=== PATIENT | male | born 1985 | race Caucasian/White ===

== ENCOUNTER 2020-10-03 00:25 | Emergency (ER) | payer OTHER ==
[~2020-10-03] VITALS: Ht 182.9 cm; Wt 108.9 kg
[2020-10-03] MEDS ORDERED: ONDANSETRON HCL INJ 2MG/ML 2ML 2 MG/ML VIAL IV STA (00:37)
[2020-10-03] MEDS ORDERED: KETOROLAC TROMETHAMINE 30 MG/ML VIAL IV STA (00:37)
[2020-10-03] MEDS ORDERED: FENTANYL CITRATE/PF 100MCG/2 ML INJ IV ONE (00:45)
[2020-10-03 01:09] LABS: BASOPHILS # (AUTO) 0.1 (0.0-0.1); BASOPHILS % 0.9 % (0.0-1.0); EOSINOPHILS # (AUTO) 0.5 (0.0-0.4); EOSINOPHILS % 3.5 % (0.0-6.0); HEMATOCRIT 48.5 % (38.2-49.6); HEMOGLOBIN 15.7 g/dL (14.0-18.0); LYMPHOCYTES # (AUTO) 3.1 (1.0-3.2); LYMPHOCYTES % 22.6 % (18.0-39.1); MEAN CORPUSCULAR HEMOGLOBIN 28.6 pg (28-32); MEAN CORPUSCULAR HGB CONC 32.4 g/dL (31-35); MEAN CORPUSCULAR VOLUME 88.3 fL (81-99); MONOCYTES # (AUTO) 0.7 (0.2-0.8); MONOCYTES % 4.9 % (4.4-11.3); NEUTROPHILS # (AUTO) 9.2 (2.1-6.9); NEUTROPHILS % 67.5 % (38.7-80.0); PLATELET COUNT 343 x10e3/uL (140-360); RED BLOOD COUNT 5.49 x10e6/uL (4.3-5.7); RED CELL DISTRIBUTION WIDTH 12.2 % (11.7-14.4)
[2020-10-03 01:25] LABS: CLARITY,URINE CLOUDY (CLEAR); COLOR,URINE YELLOW (YELLOW); KETONES,URINE TRACE (NEGATIVE); LEUKOCYTE ESTERASE ,URINE NEGATIVE (NEGATIVE); NITRITE,URINE NEGATIVE (NEGATIVE); PROTEIN,URINE DIPSTICK 2+ (NEGATIVE); URINE UROBILINOGEN 0.2 mg/dL (0.2 - 1)
[2020-10-03 01:33] LABS: BACTERIA,URINE MANY /HPF; CALCIUM OXALATE CRYSTALS,UR FEW (FEW); EPITHELIAL CELLS,URINE FEW /LPF; MUCUS,URINE MANY (RARE); RBC,URINE >50 /HPF (0-5)
[2020-10-03 01:39] LABS: ALBUMIN 3.6 g/dL (3.5-5.0); ALBUMIN/GLOBULIN RATIO 0.9 (0.8-2.0); ANION GAP 14.8 mmol/L (8-16); CALCIUM 9.1 mg/dL (8.4-10.2); CREATININE, SERUM 1.12 mg/dL (0.72-1.25); POTASSIUM 3.8 mmol/L (3.5-5.1)
[2020-10-03] MEDS ORDERED: CEFDINIR300 MG PO (02:11)
[2020-10-03] MEDS ORDERED: FLOMAX0.4 MG PO (02:12)
[2020-10-03] MEDS ORDERED: ONDANSETRON ODT4 MG PO (02:12)
[2020-10-03] MEDS ORDERED: ACETAMINOPHEN/CODEINE 300MG - 30MG TAB PO ONE (02:15)
== END 2020-10-03 02:49 | disposition home or self-care (01) ==
LOC: ER 00:37
DX: M54.5 Low back pain (principal); N13.2 Hydronephrosis with renal and ureteral calculous obstruction
CPT/HCPCS: 36415; 74176; 80053; 81001; 85025; 99283; J1885; J2405

== ENCOUNTER 2024-04-02 04:58 | Inpatient (IN) | payer BC, OTHER ==
[2024-04-02] VITALS (9 sets, daily range): BP systolic 136–146; BP diastolic 72–94; PULSE 59–76; RESP 17–20; TEMP 97.4–98.3; O2SAT 95–99
[~2024-04-02] VITALS: Ht 180.3 cm; Wt 133.8 kg
[~2024-04-02 04:58] MED LIST: CEFDINIR300 MG PO; FLOMAX0.4 MG PO; ONDANSETRON ODT4 MG PO
[2024-04-02] MEDS: ONDANSETRON HCL INJ 2MG/ML 2ML 2 MG/ML VIAL IV STA (05:12)
[2024-04-02] MEDS: SODIUM CHLORIDE 0.9% 1000ML 1,000 ML IV STA (05:12)
[2024-04-02] MEDS: KETOROLAC TROMETHAMINE 30 MG/ML VIAL IV STA (05:13)
[2024-04-02 05:20] LABS: BASOPHILS # (AUTO) 0.1 (0.0-0.1); BASOPHILS % 0.9 % (0.0-1.0); EOSINOPHILS # (AUTO) 0.4 (0.0-0.4); EOSINOPHILS % 2.8 % (0.0-6.0); HEMOGLOBIN 15.6 g/dL (14.0-18.0); LYMPHOCYTES # (AUTO) 3.4 (1.0-3.2); LYMPHOCYTES % 22.2 % (18.0-39.1); MEAN CORPUSCULAR HEMOGLOBIN 29.2 pg (28-32); MEAN CORPUSCULAR HGB CONC 32.5 g/dL (31-35); MEAN CORPUSCULAR VOLUME 89.9 fL (81-99); MONOCYTES # (AUTO) 0.7 (0.2-0.8); MONOCYTES % 4.7 % (4.4-11.3); NEUTROPHILS # (AUTO) 10.5 (2.1-6.9); NEUTROPHILS % 68.9 % (38.7-80.0); PLATELET COUNT 348 x10e3/uL (140-360); RED BLOOD COUNT 5.34 x10e6/uL (4.3-5.7); RED CELL DISTRIBUTION WIDTH 12.8 % (11.7-14.4); WHITE BLOOD COUNT 15.29 x10e3/uL (4.8-10.8)
[2024-04-02 05:30] LABS: BILIRUBIN,URINE NEGATIVE (NEGATIVE); CLARITY,URINE CLOUDY (CLEAR); COLOR,URINE YELLOW (YELLOW); GLUCOSE, URINE NEGATIVE (NEGATIVE); KETONES,URINE NEGATIVE (NEGATIVE); LEUKOCYTE ESTERASE ,URINE TRACE (NEGATIVE); NITRITE,URINE NEGATIVE (NEGATIVE); PH,URINE 6 (5 - 7); PROTEIN,URINE DIPSTICK 1+ (NEGATIVE); URINE UROBILINOGEN 0.2 mg/dL (0.2 - 1)
[2024-04-02 05:46] LABS: ALBUMIN 3.6 g/dL (3.5-5.0); ANION GAP 15.8 mmol/L (8-16); BILIRUBIN,TOTAL 0.6 mg/dL (0.2-1.2); CALCIUM 8.8 mg/dL (8.4-10.2); CREATININE, SERUM 1.09 mg/dL (0.72-1.25); POTASSIUM 3.8 mmol/L (3.5-5.1); TOTAL PROTEIN 7.1 g/dL (6.5-8.1)
[2024-04-02 06:25] LABS: BACTERIA,URINE MODERATE /HPF; EPITHELIAL CELLS,URINE RARE /LPF; RBC,URINE >50 /HPF (0-5)
[2024-04-02] MEDS: Vancomycin IV 1 GM in SODIUM CHLORIDE 0.9% 250ML 250 ML IV ONE (08:23)
[2024-04-02] MEDS: SODIUM CHLORIDE 0.9% 1000ML 1,000 ML IV SCH (11:38)
[2024-04-02] MEDS ORDERED: FENTANYL CITRATE/PF 100MCG/2 ML INJ ONE (14:53)
[2024-04-02] MEDS ORDERED: PROPOFOL IV EMULSION 10 MG/ML 20 ML VIAL ONE (14:53)
[2024-04-02] MEDS ORDERED: LIDOCAINE HCL 2% LOCAL INJ 5 ML SDV VIAL INJ ONE (14:53)
[2024-04-02] MEDS ORDERED: METOCLOPRAMIDE HCL 10 MG/2ML VIAL ONE (15:12)
[2024-04-02] MEDS ORDERED: ONDANSETRON HCL INJ 2MG/ML 2ML 2 MG/ML VIAL ONE (15:12)
[2024-04-02] MEDS ORDERED: ACETAMINOPHEN 1000 MG/100 ML 100 ML IV ONE (15:41)
[2024-04-02] MEDS: HYDROMORPHONE 1MG/1ML INJ ONE (16:20)
[2024-04-02] MEDS: Morphine 4mg INJECTION 4 MG/ML INJ IV PRN (17:16)
[2024-04-02] MEDS: HYDROMORPHONE 1MG/1ML INJ IV PRN (18:49)
[2024-04-02] MEDS: ONDANSETRON HCL INJ 2MG/ML 2ML 2 MG/ML VIAL IV PRN (18:53)
[2024-04-02] MEDS ORDERED: ACETAMINOPHEN 325 MG TAB PO PRN (23:30)
[2024-04-03] VITALS (7 sets, daily range): BP systolic 127–152; BP diastolic 7–95; PULSE 59–79; RESP 18–26; TEMP 97.5–98.8; O2SAT 95–100
[2024-04-03] MEDS ORDERED: IBUPROFEN 600 MG TAB PO PRN (07:15)
[2024-04-03 09:07] LABS: BASOPHILS # (AUTO) 0.1 (0.0-0.1); BASOPHILS % 0.6 % (0.0-1.0); EOSINOPHILS # (AUTO) 0.2 (0.0-0.4); EOSINOPHILS % 1.3 % (0.0-6.0); HEMATOCRIT 50.4 % (38.2-49.6); HEMOGLOBIN 15.5 g/dL (14.0-18.0); LYMPHOCYTES # (AUTO) 1.9 (1.0-3.2); LYMPHOCYTES % 13.4 % (18.0-39.1); MEAN CORPUSCULAR HEMOGLOBIN 28.6 pg (28-32); MEAN CORPUSCULAR HGB CONC 30.8 g/dL (31-35); MONOCYTES # (AUTO) 0.7 (0.2-0.8); MONOCYTES % 4.9 % (4.4-11.3); NEUTROPHILS # (AUTO) 11.4 (2.1-6.9); NEUTROPHILS % 79.3 % (38.7-80.0); PLATELET COUNT 301 x10e3/uL (140-360); RED BLOOD COUNT 5.42 x10e6/uL (4.3-5.7); WHITE BLOOD COUNT 14.36 x10e3/uL (4.8-10.8)
[2024-04-03] MEDS: KETOROLAC TROMETHAMINE 30 MG/ML VIAL IV STA (09:18)
[2024-04-03 09:55] LABS: ALBUMIN 3.5 g/dL (3.5-5.0); ALBUMIN/GLOBULIN RATIO 0.9 (0.8-2.0); ANION GAP 17.8 mmol/L (8-16); BILIRUBIN,TOTAL 0.4 mg/dL (0.2-1.2); CALCIUM 8.4 mg/dL (8.4-10.2); CREATININE, SERUM 1.21 mg/dL (0.72-1.25); POTASSIUM 3.8 mmol/L (3.5-5.1); TOTAL PROTEIN 7.4 g/dL (6.5-8.1)
[2024-04-03] MEDS: KETOROLAC TROMETHAMINE 30 MG/ML VIAL IV PRN (16:17)
[2024-04-04] VITALS: BP_SYST 144; BP_SYST 152; BP_DIAS 82; BP_DIAS 95; PULSE 74; PULSE 77; RESP 22; RESP 26; TEMP 98; TEMP 98.4; O2SAT 95; O2SAT 97
[2024-04-04 04:00] VITALS: BP 181/94; PULSE 84; RESP 22; TEMP 98.3; O2SAT 93
[2024-04-04 07:01] LABS: BASOPHILS # (AUTO) 0.1 (0.0-0.1); BASOPHILS % 0.5 % (0.0-1.0); EOSINOPHILS # (AUTO) 0.4 (0.0-0.4); EOSINOPHILS % 2.7 % (0.0-6.0); HEMATOCRIT 43.3 % (38.2-49.6); HEMOGLOBIN 13.5 g/dL (14.0-18.0); LYMPHOCYTES # (AUTO) 2.1 (1.0-3.2); LYMPHOCYTES % 13.8 % (18.0-39.1); MEAN CORPUSCULAR HEMOGLOBIN 28.7 pg (28-32); MEAN CORPUSCULAR HGB CONC 31.2 g/dL (31-35); MEAN CORPUSCULAR VOLUME 92.1 fL (81-99); MONOCYTES # (AUTO) 1.1 (0.2-0.8); MONOCYTES % 7.5 % (4.4-11.3); NEUTROPHILS # (AUTO) 11.2 (2.1-6.9); NEUTROPHILS % 75.1 % (38.7-80.0); PLATELET COUNT 275 x10e3/uL (140-360); RED CELL DISTRIBUTION WIDTH 12.8 % (11.7-14.4); WHITE BLOOD COUNT 14.97 x10e3/uL (4.8-10.8)
[2024-04-04 07:30] LABS: ANION GAP 14.8 mmol/L (8-16); CALCIUM 8.3 mg/dL (8.4-10.2); CREATININE, SERUM 1.42 mg/dL (0.72-1.25); POTASSIUM 3.8 mmol/L (3.5-5.1)
[2024-04-04 08:00] VITALS: BP 181/94; RESP 22; TEMP 98.3; O2SAT 93
[2024-04-04 08:21] VITALS: BP 147/93; PULSE 64; RESP 20; TEMP 97.8; O2SAT 95
[2024-04-04 09:00] VITALS: BP 147/93; PULSE 64; RESP 20; TEMP 97.8; O2SAT 95
[2024-04-04 10:11] VITALS: BP 147/93; PULSE 64; RESP 20; TEMP 97.8; O2SAT 95
[2024-04-04] MEDS ORDERED: BACTRIM DS TAB1 EACH PO (11:18)
[2024-04-04] MEDS ORDERED: KETOROLAC TROME10 MG PO (11:18)
[2024-04-14] MEDS ORDERED: TYLENOL EXTRA500 MG PO (08:41)
== END 2024-04-04 13:30 | disposition home or self-care (01) | DRG 660 ==
LOC: ER 05:00 → ERHOLD 07:23 → MED/SURG3 09:21
PROVIDERS: ADMIT Internal Medicine; ATTEND Internal Medicine
PROC: 0T768DZ Dilation of Right Ureter with Intraluminal Device, Via Natural or Artificial Opening Endoscopic (ICD-10-PCS; principal; 2024-04-03)
PROC: BT161ZZ Fluoroscopy of Right Ureter using Low Osmolar Contrast (ICD-10-PCS; 2024-04-03)
DX: N20.1 Calculus of ureter (principal); N30.01 Acute cystitis with hematuria; Z68.41 Body mass index [BMI] 40.0-44.9, adult; E66.9 Obesity, unspecified; N40.0 Benign prostatic hyperplasia without lower urinary tract symptoms; E66.01 Morbid (severe) obesity due to excess calories; K76.0 Fatty (change of) liver, not elsewhere classified
CPT/HCPCS: 36415; 74176; 74420; 80048; 80053; 80320; 81001; 83690; 83735; 85025; 87086; 99284; C1758; C1766; C2625; J0696; J1171; J1885; J2003; J2270; J2405; J2765; J7030; J7050

== ENCOUNTER → 2024-04-15 | Day surgery (SDC) | payer BC ==
[~2024-04-15] MED LIST changes: +BACTRIM DS TAB1 EACH PO; +CEFTRIAXONE 1 GM VIAL ONE; +FLUCONAZOLE 100 MG TAB ONE; +KETAMINE 50MG/5ML SYR ONE; +KETOROLAC TROME10 MG PO; +KETOROLAC TROMETHAMINE 30 MG/ML VIAL ONE; +LACTATED RINGER'S 1,000 ML ONE; +LIDOCAINE HCL 2% LOCAL INJ 5 ML SDV VIAL INJ ONE; +METOCLOPRAMIDE HCL 10 MG/2ML VIAL ONE; +ONDANSETRON HCL INJ 2MG/ML 2ML 2 MG/ML VIAL ONE; +PROPOFOL IV EMULSION 10 MG/ML 20 ML VIAL ONE; +TYLENOL EXTRA500 MG PO
[2024-04-15 14:45] VITALS: TEMP 97.9
[2024-04-15] MEDS: FLUCONAZOLE 100 MG TAB PO ONE (14:53)
[2024-04-15 15:13] VITALS: BP 139/81; PULSE 65; RESP 18; O2SAT 97
== END | disposition home or self-care (01) ==
LOC: ENDO 12:10
PROVIDERS: ATTEND Internal Medicine Gastroenterology
DX: K20.90 Esophagitis, unspecified without bleeding (principal); K25.9 Gastric ulcer, unspecified as acute or chronic, without hemorrhage or perforation; K31.89 Other diseases of stomach and duodenum; Z87.891 Personal history of nicotine dependence; E66.01 Morbid (severe) obesity due to excess calories; N40.0 Benign prostatic hyperplasia without lower urinary tract symptoms; Z01.810 Encounter for preprocedural cardiovascular examination; Z87.442 Personal history of urinary calculi
CPT/HCPCS: 43239; 43450; 93005; J0696; J1885; J2003; J2405; J2470; J2704; J2765; J7121